=== PATIENT | male | born 1940 ===

== ENCOUNTER 2018-09-18 13:55 | Outpatient (REF) | payer OTHER, SELFPAY ==
[2018-09-18 18:09] LABS: Abs Immature Grans 0.06 k/cumm (0.0-0.09); Absolute Basophil Count 0.01 k/cumm (0.0-0.2); Absolute Lymphocyte Count 3.73 k/cumm (1.2-3.4); Absolute Neutrophil Count 8.03 k/cumm (1.2-6.7); Basophils % 0.1; Eosinophils % 1.5; HGB 14.8 g/dL (13.5-17.5); Immature Grans % 0.5; Lymphocytes % 28.1; Mean Corp. HGB Concentration 32.2 g/dL (32.0-36.0); Mean Corpuscular Hemoglobin 29.7 pg (27.0-33.0); Mean Corpuscular Volume 92.4 fL (80-95); Mean Platelet Volume 10.6 fL (8.0-11.0); Monocytes % 9.3; Neutrophils % 60.5; Platelet Count 189 x1000/uL (130-400); RBC 4.98 m/cumm (4.50-6.00); RBC Distribution Width 15.3 % (11.8-14.1); White Blood Cell Count 13.27 k/cumm (4.4-10.8)
[2018-09-18 18:17] LABS: ALT 21 U/L (12-78); AST 16 U/L (15-37); Alkaline Phosphatase 77 U/L (46-116); Anion Gap 4.4 mmol/L (3-11); BUN 16 mg/dL (7-18); Bilirubin, Total 0.6 mg/dL (0.2-1.0); CO2 31.6 mmol/L (21.0-32.0); CREATININE 0.98 mg/dL (0.70-1.30); Calcium 8.6 mg/dL (8.5-10.1); Chloride 104 mmol/L (98-107); Glucose 75 mg/dL (70-100); Potassium 4.1 mmol/L (3.5-5.1); Sodium 140 mmol/L (136-145); Total Protein 6.2 g/dL (6.4-8.2)
[2018-09-18 18:55] LABS: Absolute Monocyte Count 1.23 k/cumm (0.11-0.7)
[2018-09-21 10:37] LABS: IgE <2 IU/ml (<158)
== END 2018-09-18 14:15 ==
LOC: NCHCN 13:55
PROVIDERS: PCP Internal Medicine; Visit Provider Nurse Practitioner Family
DX: R09.02 Hypoxemia (principal); J44.1 Chronic obstructive pulmonary disease with (acute) exacerbation; R63.4 Abnormal weight loss
CPT/HCPCS: 80053; 87077; 82785; 85025; 87070; 87186; 87205

== ENCOUNTER 2019-01-04 11:57 | Outpatient (REF) | payer OTHER, SELFPAY ==
[2019-01-04 23:36] LABS: ALT 15 U/L (12-78); AST 18 U/L (15-37); Albumin 3.5 g/dL (3.4-5.0); Alkaline Phosphatase 80 U/L (46-116); Anion Gap 8.5 mmol/L (3-11); BUN 10 mg/dL (7-18); Bilirubin, Total 0.7 mg/dL (0.2-1.0); CO2 29.5 mmol/L (21.0-32.0); CREATININE 1.01 mg/dL (0.70-1.30); Chloride 106 mmol/L (98-107); Glucose 94 mg/dL (70-100); NT-proBNP 267 pg/mL; Potassium 4.3 mmol/L (3.5-5.1); Sodium 144 mmol/L (136-145); Total Protein 6.5 g/dL (6.4-8.2)
== END 2019-01-04 12:17 ==
LOC: NCHCN 11:57
PROVIDERS: PCP Internal Medicine; Visit Provider Nurse Practitioner Family
DX: R60.9 Edema, unspecified (principal); I48.92 Unspecified atrial flutter; I27.81 Cor pulmonale (chronic)
CPT/HCPCS: 80053; 83880

== ENCOUNTER 2019-01-14 11:37 | Outpatient (REF) | payer OTHER, SELFPAY ==
[2019-01-14 21:13] LABS: Anion Gap 7.9 mmol/L (3-11); BUN 24 mg/dL (7-18); CO2 34.1 mmol/L (21.0-32.0); Calcium 9.6 mg/dL (8.5-10.1); Chloride 103 mmol/L (98-107); Estimated GFR 49.27 (mL/min/1.73m2); Glucose 106 mg/dL (70-100); Potassium 5.1 mmol/L (3.5-5.1); Sodium 145 mmol/L (136-145)
== END 2019-01-14 11:57 ==
LOC: NCHCN 11:37
PROVIDERS: PCP Internal Medicine; Visit Provider Nurse Practitioner Family
DX: I27.81 Cor pulmonale (chronic) (principal); R60.9 Edema, unspecified
CPT/HCPCS: 80048

== ENCOUNTER 2020-02-01 15:22 | Outpatient (REF) | payer OTHER, SELFPAY ==
[2020-02-01 21:23] LABS: Abs Immature Grans 0.07 10^3/uL (0.0-0.06); Absolute Basophil Count 0.06 10^3/uL (0.0-0.2); Absolute Eosinophil Count 0.08 10^3/uL (0.0-0.7); Absolute Lymphocyte Count 3.08 10^3/uL (1.2-3.4); Absolute Monocyte Count 0.87 10^3/uL (0.1-0.8); Absolute Neutrophil Count 4.08 10^3/uL (1.2-6.7); Basophils % 0.7; Immature Grans % 0.8; Lymphocytes % 37.4; MCH 31.7 pg (27.0-33.0); MCHC 33.3 % (32.0-36.0); MPV 10.7 fL (8.0-11.0); Monocytes % 10.6; Neutrophils % 49.5; Nucleated RBC 0 %; Platelet Count 193 10^3/uL (130-400); RBC 4.42 10^6/uL (4.36-5.78); RDW 14.9 % (11.8-14.1); WBC 8.24 10^3/uL (4.4-10.8)
[2020-02-01 21:24] LABS: Anion Gap 8.4 mmol/L (3-11); BUN 18 mg/dL (7-18); CO2 29.6 mmol/L (21.0-32.0); Calcium 8.9 mg/dL (8.5-10.1); Chloride 104 mmol/L (98-107); Glucose 98 mg/dL (74-106); Potassium 3.5 mmol/L (3.5-5.1); Sodium 142 mmol/L (136-145)
[2020-02-01 22:03] LABS: ESR 25 mm/hr (1-20)
[2020-02-02 09:01] LABS: C-Reactive Protein 0.82 mg/dL (0.0-0.3)
== END 2020-02-01 15:42 ==
LOC: NCHCN 15:22
PROVIDERS: PCP Internal Medicine; Visit Provider Nurse Practitioner Family
DX: Z00.00 Encounter for general adult medical examination without abnormal findings (principal); M25.50 Pain in unspecified joint
CPT/HCPCS: 80048; 85652; 86141; 85025; 86140

== ENCOUNTER 2021-03-12 14:47 | Outpatient (REF) | payer OTHER, SELFPAY ==
[2021-03-12 22:02] LABS: Abs Immature Grans 0.04 10^3/uL (0.0-0.06); Absolute Basophil Count 0.05 10^3/uL (0.0-0.2); Absolute Neutrophil Count 6.79 10^3/uL (1.2-6.7); Basophils % 0.4; Eosinophils % 0.3; HCT 48.5 % (40.0-50.0); HGB 15.8 g/dL (13.5-17.5); Immature Grans % 0.3; Lymphocytes % 37.3; MCH 30.2 pg (27.0-33.0); MCHC 32.6 % (32.0-36.0); MCV 92.7 fL (80-95); MPV 11.1 fL (8.0-11.0); Monocytes % 4.2; Neutrophils % 57.5; Nucleated RBC 0 %; Platelet Count 240 10^3/uL (130-400); RBC 5.23 10^6/uL (4.36-5.78); RDW 13.3 % (11.8-14.1); RDW-SD 45.8 fL
[2021-03-12 22:03] LABS: Absolute Eosinophil Count 0.04 10^3/uL (0.0-0.7)
[2021-03-12 22:20] LABS: ALT 30 U/L (16-63); AST 22 U/L (15-37); Albumin 3.7 g/dL (3.4-5.0); Alkaline Phosphatase 64 U/L (46-116); Anion Gap 8.4 mmol/L (3-11); BUN 17 mg/dL (7-18); Bilirubin, Total 0.7 mg/dL (0.2-1.0); C-Reactive Protein 0.11 mg/dL (0.0-0.3); CO2 30.6 mmol/L (21.0-32.0); CREATININE 1.2 mg/dL (0.70-1.30); Calcium 9.2 mg/dL (8.5-10.1); Chloride 104 mmol/L (98-107); Estimated GFR 58.56 (mL/min/1.73m2); Glucose 119 mg/dL (74-106); Potassium 4.1 mmol/L (3.5-5.1); Sodium 143 mmol/L (136-145); Total Protein 6.5 g/dL (6.4-8.2)
== END 2021-03-12 14:48 | disposition home or self-care (01) ==
LOC: LBN 14:47
PROVIDERS: PCP Internal Medicine; Visit Provider Nurse Practitioner Family
DX: L40.50 Arthropathic psoriasis, unspecified (principal); Z79.899 Other long term (current) drug therapy
CPT/HCPCS: 80053; 85025; 86140

== ENCOUNTER 2021-05-04 03:50 | Outpatient (CLI) | payer MEDICARE, SELFPAY ==
[2021-05-04 13:26] LABS: FIO2L 2 L; Site Right Radial; pCO2 35 mmHg (35-45); pH 7.46 (7.35-7.45); pO2 93 mmHg (80-105); sO2 97 % (95-98); tCO2 21 mmol/L (23-27)
[2021-05-04 13:27] LABS: BE 1 mmol/L (-2-3); HCO3 24 mmol/L (22-26)
[2021-05-04] MEDS: Albuterol HFA 18 GM 200 PUFF INH IH (14:15)
[2021-05-04] MEDS: Inhaler, Assist Device 1 EACH MC (14:15)
--- NOTE | 2021-05-11 06:59 | W.PFT ---
Date of service: 05/04/21 Time of Service: 12:59 Pulmonary Function Test Result Requesting Provider Max Indications: COPD Interpretation Spirometry: There is very severe airflow obstruction. There is a significant bronchodilator response Lung Volumes: There is evidence of air trapping Diffusion Capacity: The diffusion is reduced Airway Pressure: Airways resistance is elevated Impression Very severe airflow obstruction with a significant bronchodilator effect and air trapping and a reduced diffusion. 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 Note: Compared to 09/2020 the FEV1 has slightly increased. Clinical Correlation therefore is recommended.
== END 2021-05-04 03:51 | disposition home or self-care (01) ==
LOC: RT 03:50
PROVIDERS: PCP Internal Medicine; Visit Provider Student in an Organized Health Care Education/Training Program
DX: J44.9 Chronic obstructive pulmonary disease, unspecified (principal); J98.8 Other specified respiratory disorders; R94.2 Abnormal results of pulmonary function studies; J43.9 Emphysema, unspecified
CPT/HCPCS: 82805; 94060; 94726; 94729; 36600

== ENCOUNTER → 2021-05-28 00:15 | Outpatient (CLI) | payer MEDICARE, SELFPAY ==
--- OUTSIDE RECORDS SUMMARY | 2021-05-28 00:17 | XMS_ITS ---
:1940 Author Care Team Providers Name Role Phone CANDIE TORRES MD Mobile Equipment Operator Unavailable [facility] Primary Care Provider [phone] Allergies Code Code System Name Reaction Severity Status Onset 192871 RxNorm [place] Hives ? Active ? NKDA ? Medications Name Status Start Date Stop Date ? ? Advair Diskus 500 mcg-50 mcg/dose Active ? Not available powder for inhalation Anoro Ellipta 62.5 mcg-25 Active ? Not av ailable mcg/actuation powder for inhalation betamethasone dipropionate 0.05 % Active ? Not available lotion diltiazem CD 180 mg Completed ? 02/10/2019 capsule,extended release 24 hr diltiazem ER 180 mg capsule,24 Active ? N ot available hr,extended release furosemide 20 mg tablet Completed ? 02/11/20 19 furosemide 40 mg tablet Active 02/10/2019 Not avai lable ipratropium 0.5 mg-albuterol 2.5 mg/2.5 mL solution for nebu lization Completed ? 02/10/2019 Inhale 3 mL every 4 hours by inhalation route as needed. ipratropium 0.5 mg-albuterol 3 mg Active ? Not available (2.5 mg base)/3 mL nebulization soln levofloxacin 750 mg tablet Completed ? 02/10 prednisone 10 mg tablet Active ? Not avai lable TAKE 1 TABLET BY MOUTH EVERY DAY ProAir HFA 90 mcg/actuation Active ? Not available aerosol inhaler sulfamethoxazole 800 Active ? Not availab le mg-trimethoprim 160 mg tablet triamcinolone acetonide 0.1 % Active ? No t available topical cream Zithromax Z-Mahendra 250 mg tablet Completed ? TAKE 2 TABLETS (500 MG) BY ORAL ROUTE O NCE DAILY FOR 1 DAY THEN 1 TABLET (250 MG) BY ORAL ROUTE ONCE DAILY FOR 4 DAYS Problems Name Status Onset Date Source ? Atrial Flutter Active 01/07/2018 ? Pneumonitis Active 01/07/2018 ? Severe Chronic Obstructive Pulmonary Active 01/07/2018 ? Disease Ex-smoker Active 01/07/2018 ? Procedure by Method Unknown ? History Procedures Date Name Performed by ? 11/28/2017 CT, Chest, W/o Contrast [facility] ([facility]) [address], [place] [id number] (Work Place) 04/14/2019 LDCT, Chest, for Lung Cancer [facility] ([facility]) Screening [address] [place] [address] (Work Place) 01/03/2020 LDCT, Chest, for Lung Cancer [facility] ([facility]) Screening [address], [place] [id number] (Work Place) Results Lab Results Date Name Specimen Result Interpretation Description Value Range Status Address ? 04/14/2019 [id number] ? No observation ? ? ? (Aat) Phenotype, Serum recorded. Past Encounters 10/04/2020 Severe Chronic Obstructive Pulmonary Dis ease Candie Torres MD: [address] [place] [address], Ph. 01/03/2020 Severe Chronic Obstructive Pulmonary Dis ease; Ex-smoker Candie Torres MD: [address] [place] [address], Ph. Social History Tobacco Smoking Status Former Smoker Notes: quit ap ril 2008 Vaccine List Vaccine Type COVID-19, mRNA, LNP-S, PF, 100 mcg/0.5 m L dose (Moderna) 08/16/2020 09/13/2020 influenza, injectable, quadrivalent 05/21/2017 influenza, trivalent, adjuvanted 04/14/2019?0.5 mL 04/13/2020 pneumococcal conjugate PCV 13 05/30/2017 pneumococcal polysaccharide PPV23 06/10/2016 Tdap 10/31/2011 Plan of Care Reminders Provider Appointments None ? ? recorded. Lab None ? ? recorded. Referral None ? ? recorded. Procedures None ? ? recorded. Surgeries None ? ? recorded. Imaging None ? ? recorded. Vitals 10/04/2020 02:00PM Follow Up 30 Height Weight BMI Blood Pressure 180.34 cm 106.5 kg 32.7 kg/m2 151/57 mm[Hg] 01/03/2020 02:00PM Follow Up 30 Height Weight BMI Blood Pressure 180.34 cm 108 kg 33.2 kg/m2 132/62 mm[Hg] 04/14/2019 01:00PM Follow Up 30 Height Weight BMI Blood Pressure 180.34 cm 104 kg 32 kg/m2 121/65 mm[Hg] 02/10/2019 11:30AM Follow Up 30 Weight Blood Pressure 102.6 kg 125/61 mm[Hg] 01/07/2018 10:00AM Follow Up 30 Height Weight BMI Blood Pressure 180.34 cm 105.69 kg 32.5 kg/m2 120/68 mm[Hg] 10/02/2017 Height Weight 180.34 cm 98.88 kg 10/02/2017 Blood Pressure 134/60 mm[Hg]
--- NOTE | 2021-05-28 13:11 | DI.CT_ITS ---
Exam(s) CT CHEST WO EXAM: CT CHEST WO CLINICAL HISTORY: f/u new pulmonary nodule (last scan at [facility]),r91.1. TECHNIQUE: Multi planar reconstructions were performed. CONTRAST MATERIAL: None COMPARISON: No exams were available for comparison FINDINGS: CHEST: LUNGS: Respiratory motion artifact somewhat decreases interpretation accuracy. There are, however, no large confluent infiltrates and there are no pleural effusions. There is a no dular infiltrate in the anterior segment of the right upper lobe measuring 8 x 5 millimeters. Also s ome platelike atelectasis in the mid right lung zone. Mild benign-appearing increased markings in th e lateral basal segment of the right lower lobe. Also subpleural increased markings noted in the sup erior segment of the right lower lobe.. No pleural effusion. In the opposite-left lung there is a 5-6 millimeter noncalcified nodule in the superior segment of th e left lower lobe. There is also a 2-3 millimeter noncalcified nodule in the left upper lobe. Benign- appearing increased markings noted in the inferior lingular segment. No pleural effusions on either s junior MEDIASTINUM: There is no obvious hilar nor mediastinal adenopathy. Visualized thyroid unremarkable.No obvious axillary adenopathy CARDIAC: Heart size is normal. There is no pericardial effusion.Moderate coronary artery calcificati on noted. Caliber of the thoracic aorta is within normal limits. VISUALIZED UPPER ABDOMEN:No obvious abnormality. OSSEOUS: No significant osseous lesions.. IMPRESSION: 1. Bilateral lung findings as described above. Recommend follow-up CT scan in 3 months. 2. No pleural effusions nor intrathoracic adenopathy. RADIATION DOSE DELIVERED: 702.23mGy.cm Total DLP DATA REPOSITORY: All CT scans at this facility are submitted to the National Radiology Data Registry (NRDR) Dose Index Registry (DIR) with the [employer] ([employer]). RADIATION OPTIMIZATION: All CT scans at this facility use at least one of these dose optimization te chniques: automated exposure control; mA and/or kV adjustment per patient size (includes targeted exa ms where dose is matched to clinical indication); or iterative reconstruction.
== END ==
PROVIDERS: PCP Internal Medicine; Visit Provider Student in an Organized Health Care Education/Training Program
DX: R91.1 Solitary pulmonary nodule (principal)
CPT/HCPCS: 71250

== ENCOUNTER 2021-08-10 14:41 | Outpatient (CLI) | payer MEDICARE, SELFPAY | END 2021-08-10 14:42 | disposition home or self-care (01) | PROVIDERS: PCP Internal Medicine; Visit Provider Student in an Organized Health Care Education/Training Program | DX: I48.91 Unspecified atrial fibrillation (principal); I44.0 Atrioventricular block, first degree | CPT/HCPCS: 93005; 93010 ==

== ENCOUNTER 2022-01-30 02:11 | Outpatient (CLI) | payer MEDICARE, SELFPAY ==
--- NOTE | 2022-01-30 07:45 | DI.CT_ITS ---
Exam(s) CT CHEST WO EXAM: CT CHEST WO CLINICAL HISTORY: f/u LLL 6mm nodule,r91.1 TECHNIQUE: Imaging Protocol: Axial computed tomography images with coronal and sagittal reformatted images were created and reviewed CONTRAST MATERIAL: Noncontrast COMPARISON: CT CT CHEST LOW DOSE CA SCREENING from 01/03/[address] CHEST WO from 05/28/2021 FINDINGS: Exam is limited by patient motion. Tracheobronchial tree: No bronchiectasis or mucous plugging. Mediastinum and Jessika: No dominant adenopathy or fluid collection. Pulmonary parenchyma: Increased atelectasis at the left lung base. Stable 5 millimeter nodules both lower lobes. Stable 8 x 5 millimeter nodule medial right upper lobe. Stable 3 millimeter nodule lef t upper lobe.. Pulmonary arteries: Prominent. Pleura: No effusion or pneumothorax. Heart: The heart is not dilated. Moderate coronary artery calcifications are seen. Aorta: Thoracic aorta non-dilated. Atherosclerotic changes. Upper abdomen: Somewhat limited evaluation due to motion. Unremarkable. Lymph nodes: Within normal limits. Bones: Bones appear osteopenic. There are flowing osteophytes along the spine. Tubes, Catheters, and Lines: None Soft tissues: Unremarkable. IMPRESSION: Stable small bilateral pulmonary nodules. Exam is somewhat limited due to motion. Atelectasis left lower lobe. RADIATION DOSE DELIVERED: 837.39mGy.cm Total DLP DATA REPOSITORY: All CT scans at this facility are submitted to the National Radiology Data Registry (NRDR) Dose Index Registry (DIR) with the [employer] (A[employer]). RADIATION OPTIMIZATION: All CT scans at this facility use at least one of these dose optimization te chniques: automated exposure control; mA and/or kV adjustment per patient size (includes targeted exa ms where dose is matched to clinical indication); or iterative reconstruction.
== END 2022-01-30 02:31 ==
LOC: DI 02:11
PROVIDERS: PCP Internal Medicine; Visit Provider Student in an Organized Health Care Education/Training Program
DX: R91.1 Solitary pulmonary nodule (principal)
CPT/HCPCS: 71250